=== PATIENT | female | born 1970 | race Caucasian/White ===

== ENCOUNTER 2022-05-15 16:11 | Emergency (ER) | payer OTHER ==
[2022-05-15] MEDS: Alum Hydrox/Mag Hydrox/Simeth 15 ML, Lidocaine 2% 15 ML PO ONE ×2 (17:12)
[2022-05-15] MEDS: methylPREDNISolone Sodium Succinate 125 MG/2 ML SDV IVPUSH ONE (17:13)
[2022-05-15] MEDS: Ketorolac 30 MG/ML SDV IVPUSH ONE (17:13)
[2022-05-15] MEDS: Sodium Chloride 0.9% 500 ML IV SCH (17:16)
[2022-05-15] MEDS: Lidocaine 2% Viscous Solution 15 ML UD PO ONE (18:31)
== END 2022-05-15 18:42 | disposition home or self-care (01) ==
LOC: JP.ED 16:11
DX: U07.1 COVID-19 (principal); E03.9 Hypothyroidism, unspecified; Z88.2 Allergy status to sulfonamides; Z88.1 Allergy status to other antibiotic agents; Z79.899 Other long term (current) drug therapy
CPT/HCPCS: 96361; 96374; 96375; 99283; A9270; J1885; J2930; J7030